=== PATIENT | male | born 1990 | race Caucasian/White ===

== ENCOUNTER 2021-05-01 11:16 | Emergency (ER) | payer BC ==
[~2021-05-01] VITALS: Ht 185.4 cm; Wt 108.9 kg
[~2021-05-01 11:16] MED LIST: AMOXICILLIN500 M1 PO; AMOXIL 875 MG875 M1 PO; ATIVAN0.5 MG PO; CLONAZEPAM 1 MG1 M1 PO; LOTRIMIN30 GM TP; MEDROLDOSEPACK PO; NOHOMEMEDICATIONS; NORCO 5-325 TA1 EACH PO; PAXIL; PERIACTIN; TOPAMAX 100 MG100 MG PO; TOPAMAX50 MG PO; TRAMADOL 50 MG50 MG PO; ULTRAM 50MG TAB50 MG PO; VISTARIL 25 MG25 M1 PO
[2021-05-01 13:10] LABS: INFLUENZA A ANTIGEN Negative (Negative); INFLUENZA B ANTIGEN Negative (Negative)
[2021-05-01 13:36] VITALS: BP 148/103
== END 2021-05-01 13:37 | disposition home or self-care (01) ==
LOC: M.ERS 11:16
PROVIDERS: Emergency Medicine
DX: J06.9 Acute upper respiratory infection, unspecified (principal); Z20.822 Contact with and (suspected) exposure to COVID-19; F41.9 Anxiety disorder, unspecified